=== PATIENT | male | born 1970 | race Caucasian/White ===

== ENCOUNTER 2017-09-02 19:43 | Inpatient (IN) | payer OTHER ==
[2017-09-02 20:19] LABS: #Eosinphils 0.1 thou/uL (0.0-0.7); #Lymphocytes 3.4 thou/uL (1.20-3.40); #Monocytes 0.6 thou/uL (0.11-0.59); #Neutrophils 2.8 thou/uL (1.40-6.50); %Basophils 0.7 % (0.0-1.0); %Eosinophils 1.9 % (0.0-10.0); %Neutrophils 40.4 % (42.0-75.0); Mean Corpuscular HGB CONC 35.5 g/dL (32.0-36.0); Mean Corpuscular Hemoglobin 32.8 pg (27.0-31.0); Mean Corpuscular Volume 92.4 fl (80.0-94.0); Mean Platelet Volume 7.2 fL (7.4-10.4); Platelet Count 211 thou/uL (130-400); Red Blood Cell (RBC) Count 4.27 mill/uL (4.70-6.10); White Blood Cell (WBC) Count 6.9 thou/uL (4.8-10.8)
[2017-09-02 20:42] LABS: ALT (SGPT) 15 U/L (8-55); AST (SGOT) 18 U/L (5-34); Albumin 4.3 g/dL (3.5-5.0); Alkaline Phosphatase 58 U/L (40-150); Anion Gap 12 mmol/L (10-20); BUN (Urea Nitrogen) 10 mg/dL (8.9-20.6); Bilirubin, Total 0.2 mg/dL (0.2-1.2); CK (CPK) 199 U/L (30-200); Calc. Creatinine Clearance 0 mL/min (70-130); Calcium 9.9 mg/dL (7.8-10.44); Carbon Dioxide 26 mmol/L (22-29); Chloride 106 mmol/L (98-107); Estimated GFR-MDRD Greater than 90; Globulin 2.6 g/dL (2.4-3.5); Glucose 86 mg/dL (70-105); Potassium 4.8 mmol/L (3.5-5.1); Protein, Total 6.9 g/dL (6.0-8.3); Sodium 139 mmol/L (136-145)
[2017-09-02 20:46] LABS: CKMB 1.7 ng/mL (0-6.6); Troponin I 0.012 ng/mL (< 0.028)
--- NOTE | 2017-09-02 20:56 | RAD ---
CHEST ONE VIEW: History: Chest pain. Comparison: 04-13-17 FINDINGS: Heart size and mediastinum are within normal limits. The lungs are clear of infiltrates. No significa nt bony findings. IMPRESSION: No active intrathoracic disease. POS: [facility]
[2017-09-02] MEDS ORDERED: Nitroglycerin 2% Ointment 1 INCH/1 GM Packet ONE (21:30)
[2017-09-02 23:42] LABS: Troponin I Less than 0.010 ng/mL (< 0.028)
[2017-09-03] MEDS ORDERED: Guaifenesin DM 100-10/5 ML UDCUP PO PRN
[2017-09-03] MEDS ORDERED: Ondansetron HCl/PF 4 MG/2 ML Vial IVP PRN
[2017-09-03] MEDS ORDERED: Acetaminophen 325 MG TAB PO PRN
[2017-09-03] MEDS ORDERED: Albuterol Sulfate 2.5 mg/3 ml Neb NEB PRN
[2017-09-03 00:12] VITALS: BMI 28.5
[2017-09-03] MEDS ORDERED: Nitroglycerin 0.4 MG TAB (25 Tab Bottle) SL PRN (00:13)
[2017-09-03] MEDS ORDERED: Dicyclomine 20 MG TAB PO PRN (00:13)
[2017-09-03] MEDS ORDERED: Meclizine HCl 12.5 MG TAB PO PRN (00:13)
[2017-09-03] MEDS ORDERED: FLU VACC QS2017-18 36 mo. & older 0.5 ML SYRINGE IM ONE (00:30)
[2017-09-03] MEDS ORDERED: Nicotine 21 MG PATCH TD SCH (01:00)
[2017-09-03 05:00] LABS: Anion Gap 10 mmol/L (10-20); BUN (Urea Nitrogen) 13 mg/dL (8.9-20.6); Calc. Creatinine Clearance 134 mL/min (70-130); Calcium 9.6 mg/dL (7.8-10.44); Carbon Dioxide 25 mmol/L (22-29); Chloride 109 mmol/L (98-107); Cholesterol 181 mg/dl (< 200 Desired); Estimated GFR-MDRD Greater than 90; Glucose 136 mg/dL (70-105); HDL Cholesterol 26 mg/dL (>60 Neg Risk); LDL Cholesterol, Calculated 114 mg/dL; Potassium 3.9 mmol/L (3.5-5.1); Sodium 140 mmol/L (136-145); Triglycerides 203 mg/dL (Less than 150)
[2017-09-03 05:05] LABS: Troponin I 0.013 ng/mL (< 0.028)
[2017-09-03 05:27] LABS: Band 2 % (5-11); Eosinophils 2 % (0-10); Hemoglobin 13.9 g/dL (14.0-18.0); Lymphocytes 53 % (21-51); MDiff Complete? YES; Mean Corpuscular HGB CONC 34.1 g/dL (32.0-36.0); Mean Corpuscular Hemoglobin 31.6 pg (27.0-31.0); Mean Corpuscular Volume 92.7 fl (80.0-94.0); Mean Platelet Volume 7.5 fL (7.4-10.4); Monocytes 6 % (0-10); Neutrophil 37 % (42-75); PLT Morphology Comment Appears Adequate; Platelet Count 213 thou/uL (130-400); RBC Distribution Width 12.2 % (11.5-14.5); Red Blood Cell (RBC) Count 4.39 mill/uL (4.70-6.10); White Blood Cell (WBC) Count 5.4 thou/uL (4.8-10.8)
--- NOTE | 2017-09-03 05:55 | HP ---
CHIEF COMPLAINT: Shortness of breath and chest pain. HISTORY OF PRESENT ILLNESS: This is a 47-year-old young white male with a known history of coronary artery disease status post stents, the last stent was done one year ago, was done at outside [place], unknown provider. Patient also has a history of peripheral arterial disease with a left leg stenting was done 4 months ago and patient is on Plavix and aspirin. Patient is a pretty chronic sm oker, smokes almost 3 packs a day and has been doing that for almost 30-40 years. He has been having this cough with productive sputum for the past 2-3 weeks and he always has this cough all the time. He is complaining of pain in the left side of the chest, more pleuritic in nature. Pain was 4/10 in intensity, not relieved with rest, not relieved, not aggravated on motion, but is aggravated on deep breathing and coughing. He denies having any fever, no body pains. Patient denies taking flu shots . PAST MEDICAL HISTORY: 1. Coronary artery disease. 2. Tobacco use. 3. History of seizure disorder. 4. History of chronic back pain. 5. Hepatitis C treated with interferon. 6. Bipolar disorder. 7. History of cholecystectomy. PAST SURGICAL HISTORY: Cholecystectomy. SOCIAL HISTORY: The patient is a nonsmoker. Smokes 3 packs a day for more than 30 years. No histor y of alcohol. He is and has grown children. He is self-employed and works as a [employer] a [employer]. FAMILY HISTORY: Mother of stroke. Father had lung cancer at the age of 70. ALLERGIES: MORPHINE, PENICILLIN, and VICODIN. HOME MEDICATIONS: 1. Gemfibrozil 600 mg twice a daily. 2. Zyrtec 10 mg daily. 3. Plavix 75 mg daily. 4. Seroquel 100 mg 1.5 tablets in the evening. 5. Depakote 500 mg 4 times a day. 6. Aspirin 325 mg daily. 7. Toprol 25 mg daily. 8. Diazepam 10 mg p.o. at bedtime. 9. Plavix 75 mg p.o. daily. 10. Depakote 2000 mg p.o. at bedtime. 11. Isosorbide mononitrate 30 mg p.o. daily. 12. Meclizine. 13. Nitroglycerin as needed. 14. Pravastatin 80 mg at bedtime. 15. Quetiapine 150 mg at bedtime. REVIEW OF SYSTEMS: All 12 systems are reviewed with the patient thoroughly and found to be negative at this time except the once described in the HPI. The following complete review of systems was nega tive, unless otherwise mentioned in the HPI or below: Constitutional: Weight loss or gain, sense of well-being, ability to conduct usual activities, exercise tolerance. Skin/Breast: Rash, itching, c hanges in hair growth or loss, nail changes, breast lumps, tenderness, swelling, nipple discharge. E yes: Vision, double vision, tearing, blind spots, pain. ENT/Mouth: Headaches (location, time of on set, duration, precipitating factors), vertigo, lightheadedness, injury. Vision, double vision, teari ng, blind spots, pain, nose bleeding, colds, obstruction, discharge, dental difficulties, gingival bl eeding, dentures, neck stiffness, pain, tenderness, masses in thyroid or other areas. Cardiovascular : Precordial pain, substernal distress, palpitations, syncope, dyspnea on exertion, orthopnea, noctu rnal paroxysmal dyspnea, edema, cyanosis, hypertension, heart murmurs, varicosities, phlebitis, lindy ication. Respiratory: Pain, shortness of breath, wheezing, stridor, cough, hemoptysis, fever or nig ht sweats. Gastrointestinal: Poor appetite, dysphagia, indigestion, abdominal pain, heartburn, eruc tation, nausea, vomiting, hematemesis, jaundice, constipation, or diarrhea, abnormal stools (guillermo-col ored, tarry, bloody, greasy, foul smelling), flatulence, hemorrhoids, recent changes in bowel habits. Genitourinary: Urgency, frequency, dysuria, nocturia, hematuria, polyuria, oliguria, unusual (or c hange in) color of urine, stones, hesitancy, change in size of stream, dribbling, acute retention or incontinence, libido, potency. Musculoskeletal: Pain, swelling, redness or heat of muscles or joint s, limitation, of motion, muscular weakness, atrophy, cramps. Neurologic/Psychiatric: Convulsions, paralyses, tremor, incoordination, parasthesias, difficulties with memory of speech, sensory or motor disturbances, or muscular coordination (ataxia, tremor), emotional problems, anxiety, depression, pr evious psychiatric care, unusual perceptions, hallucinations. Allergy/Immunologic: Skin rash, anemia, bleeding tendency, polydipsia, polyuria, intolerance to heat or cold. PHYSICAL EXAMINATION: VITAL SIGNS: Blood pressures of 130/80, heart rate is 88, heart rate is 58, respiratory rate is 18, saturation is 98%. GENERAL: The patient is moderately-built, moderately nourished, does not appear to be in acute distr ess at this time, alert, oriented x3. HEENT: Atraumatic, normocephalic. PERRLA. Extraocular muscles were intact. Oral mucosa is pink an d moist. CARDIOVASCULAR: S1, S2 normal. No murmurs, rubs or gallops. LUNGS: Bilateral air entry was equal. Had crackles and wheezing noted diffusely but no signs of any acute respiratory distress. ABDOMEN: Soft, nontender, no guarding, no rebound tenderness. Bowel sounds are normal. MUSCULOSKELETAL: No calf tenderness. No pedal edema. No joint tenderness, no joint swelling. SKIN: No cyanosis, no erythema, no rash, no pallor. NEUROLOGIC: Cranial nerve examination II-XII intact. No focal deficits were noted. PSYCHIATRIC: No signs of suicidal ideation. No signs of nicole. LYMPHADENOPATHY: No evidence of generalized lymphadenopathy was noted. LABORATORY DATA: Sodium 139, potassium 4.8, chloride 106, BUN is 10, creatinine 0.88. WBC 6.9, hemo globin 14.2, hematocrit 39.5, platelets are 211. ASSESSMENT AND PLAN: 1. Acute coronary syndrome. 2. Possible new-onset chronic obstructive pulmonary disease. 3. Coronary artery disease status post stents. 4. Hypertension. 5. Hyperlipidemia. 6. Peripheral arterial disease. PLAN: 1. Plan is to closely monitor this patient with serial troponins q.6 hours and will plan to do a nuc lear stress test in the morning. We will consult Cardiology as the patient is a high risk with a rec ent stent a year ago and patient is on aspirin and Plavix and patient was told he is very high risk; with any chest pains, need to be called in with the traffic circuit engineer. Patient also had a peripheral ana rial stent 3 months ago. 2. We will continue the patient on home medications, aspirin and Plavix. We will hold beta hola at this time as the patient had a bradycardia in the ER with a heart rate in 59. 3. Patient has a possible new onset COPD because of his chronic smoking history of more than 3 packs for more than 30 years. We will put a nicotine patch. I counseled the patient to quit smoking. I spent 15-20 minutes with the patient and at this time, we will start the patient on DuoNeb every 4 ho urs and albuterol nebs as needed. Most likely, he could be having a COPD exacerbation. He also comp lains of productive sputum. We will start the patient on azithromycin. 4. Patient has history of hypertension. We will continue the patient with home medications. 5. Patient has a history of coronary artery disease status post stents as discussed above. 6. We will follow with the cardiology recommendations. 7. Patient has history of seizure disorder. We will restart the patient's home medications. The pa radha is on Depakote. 8. DVT prophylaxis. Lovenox 40 mg subcu daily. Dictating physician, Marlon Carrillo, spent 70 minutes with this patient.
[2017-09-03] MEDS ORDERED: Ondansetron ODT 4 MG TAB PO PRN (06:00)
[2017-09-03] MEDS: Nitroglycerin 2% Ointment 1 INCH/1 GM Packet TOP SCH ×4 (06:08→23:44)
[2017-09-03] MEDS: Budesonide 0.25 MG/2 ML NEB INH SCH ×2 (07:27→19:38)
[2017-09-03] MEDS ORDERED: Enoxaparin Sodium 40 MG/0.4 ML SYRINGE SC SCH (09:00)
[2017-09-03] MEDS ORDERED: Non-Formulary Item 1 EACH (Esomeprazole Magnesium [Nexium] 40 MG) PO SCH (09:00)
[2017-09-03] MEDS ORDERED: Aspirin 325 MG TAB PO SCH (09:00)
[2017-09-03] MEDS ORDERED: Cetirizine HCl 10 MG TAB PO SCH (09:00)
[2017-09-03] MEDS ORDERED: Communication Order-Pharmacy FS SCH (12:45)
[2017-09-03] MEDS: Aspirin 325 mg Enteric Coated Tablet PO SCH (13:52)
[2017-09-03] MEDS: Azithromycin 250 MG TAB PO SCH (13:52)
[2017-09-03] MEDS ORDERED: Regadenoson 0.4 MG/5 ML SYRINGE ONE (13:56)
[2017-09-03] MEDS: Docusate 100 MG CAP PO SCH ×2 (13:56→21:36)
[2017-09-03] MEDS: Famotidine/PF 20 mg/2ml Vial SLOW IVP SCH ×2 (13:56→21:36)
[2017-09-03] MEDS: Loratadine 10 MG TAB PO SCH (13:56)
[2017-09-03] MEDS: Clopidogrel Bisulfate 75 MG TAB PO SCH (14:29)
--- NOTE | 2017-09-03 14:31 | CON ---
DATE OF CONSULTATION: 09/03/2017 HISTORY OF PRESENT ILLNESS: The patient is a 47-year-old gentleman who presents for evaluation of recurrent chest discomfort. The patient has a history of PTCA and stent placement into the LAD and left circumflex artery. Unfortunately, the patient has a history of noncompliance. He states that since he last had stents placed approximately 6 months ago he has missed several days of his Plavix and aspirin. The patient states yesterday he developed substernal chest pain and required 2 nitroglycerins for relief. The patient denies having any present chest discomfort. PAST MEDICAL HISTORY: 1. Coronary artery disease. 2. Hypertension. 3. Seizure disorder. 4. Bipolar disorder. 5. Past history of hepatitis C. 6. Peripheral vascular disease. PAST SURGICAL HISTORY: Cholecystectomy. ALLERGIES: MORPHINE, PENICILLIN, VICODIN. SOCIAL HISTORY: He smokes 3 packs per day. The patient has a past history of alcohol abuse and illicit drug use. MEDICATIONS ON ADMISSION: Cardizem 120 daily, aspirin 325 daily, Depakote 2000 at bedtime, Plavix 75 daily, Zyrtec 10 daily, Imdur 30 q.a.m., Nexium 40 daily, Seroquel 150 at bedtime. REVIEW OF SYSTEMS: Ten point system noticeable for increasing dyspnea. PHYSICAL EXAMINATION: GENERAL: This is an anxious gentleman with a blood pressure of 118/58. NECK: Showed no jugular venous distention. LUNGS: Coarse breath sounds bilateral. HEART: Regular rate and rhythm, normal S1, S2, no murmurs. ABDOMEN: Nondistended. EXTREMITIES: No edema. SKIN: Warm and dry. NEUROLOGIC: Nonfocal. PSYCHIATRIC: The patient is anxious. LABORATORY DATA: White blood count 5.4, hemoglobin 13.9, hematocrit 40.7, platelets 213. Sodium is 140, potassium 3.9, chloride 109, bicarbonate 25, BUN 13, creatinine 0.8. His cholesterol was 203. His EKG revealed him to have sinus bradycardia, otherwise normal ECG. IMPRESSION: 1. Unstable angina. 2. History of percutaneous transluminal coronary angioplasty and stent placement. 3. Peripheral vascular disease. 4. Hypertension. 5. Dyslipidemia. 6. Tobacco abuse. This gentleman presents with unstable angina. He has evidence of a large anterior defect on his stress test. I have highly recommend he proceed with a repeat cardiac catheterization to determine if he has developed evidence of restenosis or progressive coronary artery disease. I explained the risks involved cardiac catheterization including [place], bleeding, stroke, cardiac arrhythmia, and cardiac . The patient understands these risks and wishes to proceed. The life threatening consequences of his noncompliance with medications have once again been explained to the patient. The patient has been restarted on his Plavix and aspirin. We will start the patient on statin therapy. We will follow this patient with you through his hospitalization. YOLANDA
--- NOTE | 2017-09-03 15:53 | NM ---
CARDIAC SPECT: HISTORY: A 47-year-old male with chest pain, coronary artery disease, peripheral artery disease, hypertension, and dyslipidemia. TECHNIQUE: A myocardial perfusion scan was performed using the single-isotope 1-day protocol with Technetium 99m sestamibi. Eleven mCi were injected intravenously for the rest exam followed by 31 mCi for the stre ss study. Pharmacologic stress with LexiScan was monitored and interpreted by Dr. Hair. FINDINGS: There is a moderate-sized perfusion defect in the anterior wall on stress images with near-complete r eversibility at rest. GATED SPECT LVEF: 63%. WALL MOTION EXAM: Normal. IMPRESSION: Reversible anterior wall ischemia. POS: [facility]
--- NOTE | 2017-09-03 16:49 | PDOC.PN ---
- Subjective Encounter Start Date: 09/03/17 Encounter Start Time: 16:53 Subjective: Reports no complaints -: No acute events overnight. -: Stress test done for chest pain abnormal. - Objective Resuscitation Status: Resuscitation Status FULL:Full Resuscitation Vital Signs & Weight: Vital Signs (12 hours) Temp Pulse Resp BP Pulse Ox 09/03/17 15:26 97.5 F L 56 L 20 120/59 L 95 09/03/17 13:43 50 L 09/03/17 08:00 97.7 F 50 L 16 09/03/17 07:30 94 L 09/03/17 07:27 50 L 16 94 L 09/03/17 07:10 97.7 F 48 L 16 118/58 L 92 L Weight Weight 182 lb 8 oz I&O: 09/02/17 09/03/17 09/04/17 06:59 06:59 06:59 Intake Total 240 Output Total 0 Balance 240 Result Diagrams: 09/03/17 04:29 09/03/17 04:29 Phys Exam - Physical Examination Constitutional: NAD HEENT: PERRLA, moist MMs, sclera anicteric Neck: no JVD, supple, full ROM Respiratory: no wheezing, no rales, no rhonchi, clear to auscultation bilateral Cardiovascular: RRR, no significant murmur, no rub Gastrointestinal: soft, non-tender, no distention, positive bowel sounds Musculoskeletal: no edema, pulses present Neurological: non-focal, moves all 4 limbs Psychiatric: normal affect, A&O x 3 Skin: no rash, normal turgor Dx/Plan (1) Chest pain Code(s): R07.9 - CHEST PAIN, UNSPECIFIED Status: Acute Qualifiers: Chest pain type: chest pain due to myocardial ischemia Ischemic chest pain type: unstable angina pectoris Qualified Code(s): I20.0 - Unstable angina Comment: Stress test showed anterior infarct. Cards on board. Cath tomorrow. Nitroglycerin PRN ASA (2) CAD (coronary artery disease) Code(s): I25.10 - ATHSCL HEART DISEASE OF [place] CORONARY ARTERY W/O ANG PCTRS Status: Acute Qualifiers: Coronary Disease-Associated Artery/Lesion type: unspecified vessel or lesion type [place] vs. transplanted heart: [place] heart Associated angina: with unstable angina Qualified Code(s): I25.110 - Atherosclerotic heart disease of [place] coronary artery with unstable angina pectoris Plan: As above. (3) Tobacco abuse disorder Code(s): Z72.0 - TOBACCO USE Status: Acute Comment: Encourage on cessation (4) Seizure disorder Code(s): G40.909 - EPILEPSY, UNSP, NOT INTRACTABLE, WITHOUT STATUS EPILEPTICUS Status: Acute Comment: Stable, seizure free. Resume home medications (5) Hepatitis C infection Code(s): B19.20 - UNSPECIFIED VIRAL HEPATITIS C WITHOUT HEPATIC COMA Status: Acute Qualifiers: Viral hepatitis chronicity: chronic Hepatic coma status: without hepatic coma Qualified Code(s): B18.2 - Chronic viral hepatitis C Comment: On interferon. (6) Bipolar disorder Code(s): F31.9 - BIPOLAR DISORDER, UNSPECIFIED Status: Acute Qualifiers: Active/Remission status: remission status unspecified Qualified Code(s): F31.9 - Bipolar disorder, unspecified Comment: Stable Continue home medications. - Plan cont current plan of care, DVT proph w/lovenox * .
[2017-09-03] MEDS ORDERED: Pravastatin Sodium 40 MG TAB PO SCH (21:00)
[2017-09-04] MEDS: Azithromycin 250 MG TAB PO SCH (04:59)
[2017-09-04] MEDS: Loratadine 10 MG TAB PO SCH (05:00)
[2017-09-04] MEDS: Clopidogrel Bisulfate 75 MG TAB PO SCH (05:00)
[2017-09-04] MEDS: Nitroglycerin 2% Ointment 1 INCH/1 GM Packet TOP SCH ×2 (05:00→13:29)
[2017-09-04] MEDS: Aspirin 325 mg Enteric Coated Tablet PO SCH (05:00)
[2017-09-04 06:18] LABS: Anion Gap 10 mmol/L (10-20); BUN (Urea Nitrogen) 14 mg/dL (8.9-20.6); Calc. Creatinine Clearance 129 mL/min (70-130); Calcium 9.2 mg/dL (7.8-10.44); Carbon Dioxide 26 mmol/L (22-29); Chloride 108 mmol/L (98-107); Estimated GFR-MDRD Greater than 90; Glucose 101 mg/dL (70-105); Magnesium 2.2 mg/dL (1.6-2.6); Potassium 3.9 mmol/L (3.5-5.1); Sodium 140 mmol/L (136-145)
[2017-09-04 06:44] LABS: Eosinophils 1 % (0-10); Lymphocytes 51 % (21-51); MDiff Complete? YES; Mean Corpuscular HGB CONC 33.6 g/dL (32.0-36.0); Mean Corpuscular Hemoglobin 31.4 pg (27.0-31.0); Mean Corpuscular Volume 93.3 fl (80.0-94.0); Mean Platelet Volume 7.6 fL (7.4-10.4); Monocytes 7 % (0-10); Neutrophil 39 % (42-75); PLT Morphology Comment Appears Adequate; Platelet Count 190 thou/uL (130-400); RBC Distribution Width 12.2 % (11.5-14.5); RBC Morphology Normal; Reactive Lymphocytes 2 % (0-10); Red Blood Cell (RBC) Count 4.16 mill/uL (4.70-6.10); White Blood Cell (WBC) Count 5.9 thou/uL (4.8-10.8)
[2017-09-04] MEDS ORDERED: Verapamil 5 MG/2 ML VIAL ONE (07:09)
[2017-09-04] MEDS ORDERED: Heparin 10,000 UNITS/1 ML VIAL ONE (07:09)
[2017-09-04] MEDS ORDERED: Nitroglycerin 100MG/250ML BOT 250 ML ONE (07:09)
[2017-09-04] MEDS ORDERED: Midazolam HCl 2 mg/2 ml Vial ONE (07:22)
[2017-09-04] MEDS: Budesonide 0.25 MG/2 ML NEB INH SCH (07:22)
[2017-09-04] MEDS ORDERED: Fentanyl 100 MCG/2 ML VIAL ONE (07:23)
[2017-09-04] MEDS ORDERED: Nitroglycerin 0.4 MG TAB 1 EACH SL PRN (08:14)
[2017-09-04] MEDS ORDERED: Clopidogrel Bisulfate 300 MG TAB ONE (08:15)
[2017-09-04] MEDS ORDERED: Nicotine 21 MG PATCH TD SCH (09:00)
[2017-09-04] MEDS: Docusate 100 MG CAP PO SCH (09:41)
--- NOTE | 2017-09-04 12:52 | PDOC.PN ---
- Subjective Encounter Start Date: 09/04/17 Encounter Start Time: 12:57 Subjective: No acute events overnight. -: Has no complaints today -: [facility] earlier this morning. Tolerated procedure without incident . - Objective Resuscitation Status: Resuscitation Status FULL:Full Resuscitation MAR Reviewed: Yes Vital Signs & Weight: Vital Signs (12 hours) Temp Pulse Resp BP Pulse Ox 09/04/17 11:52 97.9 F 60 16 135/65 92 L 09/04/17 09:41 64 09/04/17 08:00 98.1 F 64 18 134/68 09/04/17 04:45 98.1 F 61 14 116/63 93 L Weight Weight 182 lb 8 oz I&O: 09/03/17 09/04/17 09/05/17 06:59 06:59 06:59 Intake Total 240 1000 Output Total 0 Balance 240 1000 Result Diagrams: 09/04/17 04:46 09/04/17 04:46 Phys Exam - Physical Examination Constitutional: NAD HEENT: PERRLA, moist MMs, sclera anicteric Neck: supple, full ROM Respiratory: no wheezing, no rales, no rhonchi, clear to auscultation bilateral Cardiovascular: RRR, no significant murmur, no rub Gastrointestinal: soft, non-tender, no distention, positive bowel sounds Musculoskeletal: no edema, pulses present Neurological: non-focal, moves all 4 limbs Skin: no rash, normal turgor Dx/Plan (1) Chest pain Code(s): R07.9 - CHEST PAIN, UNSPECIFIED Status: Acute Qualifiers: Chest pain type: chest pain due to myocardial ischemia Ischemic chest pain type: unstable angina pectoris Qualified Code(s): I20.0 - Unstable angina Comment: Stress test showed anterior infarct. Cards on board. Cath tomorrow. Nitroglycerin PRN ASA, Plavix, Statin, diltiazem and Isosorbide mononitrate s/p POBA to D1 (2) CAD (coronary artery disease) Code(s): I25.10 - ATHSCL HEART DISEASE OF [place] CORONARY ARTERY W/O ANG PCTRS Status: Acute Qualifiers: Coronary Disease-Associated Artery/Lesion type: unspecified vessel or lesion type [place] vs. transplanted heart: [place] heart Associated angina: with unstable angina Qualified Code(s): I25.110 - Atherosclerotic heart disease of [place] coronary artery with unstable angina pectoris Plan: As above. (3) Tobacco abuse disorder Code(s): Z72.0 - TOBACCO USE Status: Acute Comment: Encouraged on cessation (4) Seizure disorder Code(s): G40.909 - EPILEPSY, UNSP, NOT INTRACTABLE, WITHOUT STATUS EPILEPTICUS Status: Acute Comment: Stable, seizure free. Resume home medications (5) Hepatitis C infection Code(s): B19.20 - UNSPECIFIED VIRAL HEPATITIS C WITHOUT HEPATIC COMA Status: Acute Qualifiers: Viral hepatitis chronicity: chronic Hepatic coma status: without hepatic coma Qualified Code(s): B18.2 - Chronic viral hepatitis C Comment: On interferon. (6) Bipolar disorder Code(s): F31.9 - BIPOLAR DISORDER, UNSPECIFIED Status: Acute Qualifiers: Active/Remission status: remission status unspecified Qualified Code(s): F31.9 - Bipolar disorder, unspecified Comment: Stable Continue home medications. - Plan Likely d/c today ig v\given all clear by cardiology. * .
[2017-09-04 16:26] VITALS: BP 132/65; TEMP 98.6
--- NOTE | 2017-09-05 21:37 | DIS ---
DATE OF ADMISSION: 09/02/2017 DATE OF DISCHARGE: 09/04/2017 DISCHARGE DIAGNOSIS: Coronary artery disease. SECONDARY DIAGNOSES: Tobacco abuse, seizure disorder, chronic back pain, hepatitis C treated with [facility], bipolar disorder, cholecystectomy. HISTORY OF PRESENT ILLNESS AND HOSPITAL COURSE: A 47-year-old male with a history of CAD status post stents with the last stent done about a year ago and who also has a history of PAD with left leg korin nting done 4 months ago, on Plavix and aspirin. The patient is a chronic smoker, always smokes 3 pac ks a day and has been smoking for about 40 years. He has also had a history of polysubstance abuse. He presented to the emergency room which cough productive of sputum (has smoker's cough) and left-si ded chest pain described as pleuritic 4/10, not relieved by rest, not aggravated by motion. He denie d fever, aches. He had no other symptoms. He has not had a flu shot. HOSPITAL COURSE: He had a stress test which showed reversible anterior wall ischemia. He proceeded to have cardiac catheterization the following day in which a successful POBA to D1 was placed success fully. The patient, however, left against medical advice the same day. Patient is deemed to have re sumed his home medications as he left AMA. PHYSICAL EXAMINATION: The patient left AMA, so was not examined. LABORATORY DATA: CBC was largely unremarkable as well as serum chemistry. IMAGING: Chest x-ray with no acute pathology. CONSULT: Cardiology. CONDITION AT DISCHARGE: Guarded (Patient left AMA). PROCEDURES: Cardiac catheterization. DIET: Heart healthy diet. CARE GOALS: To follow up with his primary care physician within 1 week of discharge. ACTIVITY: To resume as tolerated. Time of discharge, including chart review documentation of 65 minutes.
--- NOTE | 2017-09-07 17:25 | EKG ---
Test Reason : Blood Pressure : / mmHG Vent. Rate : 059 BPM Atrial Rate : 059 BPM P-R Int : 150 ms QRS Dur : 090 ms QT Int : 418 ms P-R-T Axes : 055 066 060 degrees QTc Int : 413 ms Sinus bradycardia Otherwise normal ECG Confirmed by JEFRY BALTAZAR, KATHIA Roberts ([id number]), commercial production editor OLGA QUISPE ([id number]) on 09/07/2017 5:25:25 PM Referred By: Confirmed By:KATHIA CAPPS MD
== END 2017-09-04 17:07 | disposition left against medical advice (07) | DRG 251 ==
LOC: ERS 19:43 → OBSVTOIN 21:10 → 2SW 21:10
PROVIDERS: ADMIT Family Medicine; ATTEND Family Medicine
PROC: 02703ZZ Dilation of Coronary Artery, One Artery, Percutaneous Approach (ICD-10-PCS; principal; 2017-09-04)
PROC: 4A023N7 Measurement of Cardiac Sampling and Pressure, Left Heart, Percutaneous Approach (ICD-10-PCS; 2017-09-04)
PROC: B2111ZZ Fluoroscopy of Multiple Coronary Arteries using Low Osmolar Contrast (ICD-10-PCS; 2017-09-04)
PROC: B3101ZZ Fluoroscopy of Thoracic Aorta using Low Osmolar Contrast (ICD-10-PCS; 2017-09-04)
PROC: B2151ZZ Fluoroscopy of Left Heart using Low Osmolar Contrast (ICD-10-PCS; 2017-09-04)
DX: I25.110 Atherosclerotic heart disease of native coronary artery with unstable angina pectoris (principal); B19.20 Unspecified viral hepatitis C without hepatic coma; F17.210 Nicotine dependence, cigarettes, uncomplicated; G40.909 Epilepsy, unspecified, not intractable, without status epilepticus; F31.9 Bipolar disorder, unspecified; I73.9 Peripheral vascular disease, unspecified; Z95.5 Presence of coronary angioplasty implant and graft; Z91.14 Patient's other noncompliance with medication regimen; E78.5 Hyperlipidemia, unspecified; J44.9 Chronic obstructive pulmonary disease, unspecified; I10 Essential (primary) hypertension
CPT/HCPCS: 36415; 71045; 78452; 80048; 80053; 80061; 82553; 83735; 84484; 85025; 85347; 90471; 90682; 90732; 92920; 93005; 93010; 93017; 93306; 93458; 93798; 94640; 94760; 99152; 99153; 99406; A4216; A9500; C1769; G0008; G0009; J1644; J1650; J2250; J2785; J3010; J7620; J7626; Q2036; S0028

== ENCOUNTER 2019-02-15 19:17 | Observation (INO) | payer OTHER ==
[2019-02-15 19:41] LABS: #Eosinphils 0.1 thou/uL (0.0-0.7); #Lymphocytes 4.3 thou/uL (1.20-3.40); #Monocytes 0.5 thou/uL (0.11-0.59); %Basophils 0.4 % (0.0-1.0); %Eosinophils 1.3 % (0.0-10.0); %Lymphocytes 38.8 % (21.0-51.0); %Monocytes 4.9 % (0.0-10.0); %Neutrophils 54.5 % (42.0-75.0); Hemoglobin 13.7 g/dL (14.0-18.0); Mean Corpuscular HGB CONC 33.6 g/dL (32.0-36.0); Mean Corpuscular Hemoglobin 31.1 pg (27.0-31.0); Mean Corpuscular Volume 92.5 fL (78.0-98.0); Mean Platelet Volume 6.6 fL (7.4-10.4); Platelet Count 270 thou/uL (130-400); RBC Distribution Width 12.6 % (11.5-14.5); White Blood Cell (WBC) Count 11.1 thou/uL (4.8-10.8)
[2019-02-15 20:03] LABS: ALT (SGPT) 11 U/L (8-55); AST (SGOT) 9 U/L (5-34); Albumin 4.3 g/dL (3.5-5.0); Alkaline Phosphatase 66 U/L (40-150); Anion Gap 13 mmol/L (10-20); BUN (Urea Nitrogen) 7 mg/dL (8.9-20.6); Bilirubin, Total 0.2 mg/dL (0.2-1.2); CK (CPK) 55 U/L (30-200); Calc. Creatinine Clearance 0 mL/min (70-130); Calcium 10.2 mg/dL (7.8-10.44); Carbon Dioxide 25 mmol/L (22-29); Chloride 106 mmol/L (98-107); Estimated GFR-MDRD Greater than 90; Globulin 2.6 g/dL (2.4-3.5); Glucose 115 mg/dL (70-105); Lipase 68 U/L (8-78); Potassium 3.7 mmol/L (3.5-5.1); Protein, Total 6.9 g/dL (6.0-8.3); Sodium 140 mmol/L (136-145)
--- NOTE | 2019-02-15 20:03 | RAD ---
Exam: Chest one view HISTORY:Chest pain Comparison: 09/02/2017 FINDINGS: Lungs: No masses or consolidation. Right hemidiaphragm is elevated. Cardiac silhouette: Normal size Pulmonary vessels: Normal Pleural Spaces: Clear Pneumothorax: None Osseous abnormalities: None of acuity. IMPRESSION: No focal consolidation.
[2019-02-15] MEDS ORDERED: Nitroglycerin 0.4 MG TAB 1 EACH ONE (20:05)
[2019-02-15] MEDS ORDERED: Aspirin Chewable 81 MG TAB ONE (20:05)
[2019-02-15 20:15] LABS: Acetaminophen Less than 6.0 mcg/mL (10.0-30.0); Alcohol Less than 10 mg/dL (Less than 10); Salicylate Less than 8.0 mg/dL (15.0-30.0)
[2019-02-15 20:32] LABS: Amphetamine Not Detected (NotDetected); Barbiturates Screen Not Detected (NotDetected); Benzodiazepine Screen Detected (NotDetected); Cocaine Metabolite Screen Not Detected (NotDetected); Medtox Control Line Valid? VALID (VALID); Medtox Reader # READER 1; Methadone Not Detected (NotDetected); Methamphetamine Not Detected (NotDetected); Opiate Screen Not Detected (NotDetected); Oxycodone Screen Not Detected (NotDetected); Phencyclidine (PCP) Not Detected (NotDetected); THC/Cannabinoid Screen Not Detected (NotDetected); Tricyclic Screen Detected (NotDetected)
[2019-02-15 22:51] LABS: Troponin I Less than 0.010 ng/mL (< 0.028)
[2019-02-15 23:07] VITALS: BMI 25.4
[2019-02-15] MEDS ORDERED: Dicyclomine 20 MG TAB PO PRN (23:37)
[2019-02-15] MEDS ORDERED: Meclizine HCl 12.5 MG TAB PO PRN (23:37)
[2019-02-15] MEDS ORDERED: Nitroglycerin 0.4 MG TAB (25 Tab Bottle) SL PRN (23:37)
[2019-02-15] MEDS ORDERED: Ondansetron PF 4 MG/2 ML Vial IVP PRN (23:55)
[2019-02-15] MEDS ORDERED: Ondansetron ODT 4 MG TAB PO PRN (23:55)
--- NOTE | 2019-02-16 01:17 | HP ---
PRIMARY CARE PHYSICIAN: None. CHIEF COMPLAINT: Chest pain. HISTORY OF PRESENT ILLNESS: Mr. Lennon is a 48-year-old man with a past medical history of hypertension, hyperlipidemia, coronary artery disease, status post stents x3, seizure disorder, bipolar disorder, who had presented to [facility] earlier today for a new onset left-sided chest pain. The patient states that he has a history of angina that he takes nitroglycerin and isosorbide for at home; however, he states that this chest pain has been gradually getting worse over the last week, and he states that it is worse with activity. He was recently incarcerated for the last 4 months and was not getting some of his home medications for this. He had denied any fever, chills, any headache, blurred vision, dizziness, any palpitations, shortness of breath, abdominal pain, nausea, vomiting, or any change in his stool. In the Emergency Department, he was given aspirin and nitroglycerin, which had helped with his chest pain. His blood pressure and other vital signs remained stable and he had remained in normal sinus rhythm on the EKG. Serial troponins were performed and found to be negative so far x2. A urine drug screen was also performed and detected benzodiazepines and tricyclics, otherwise unremarkable. REVIEW OF SYSTEMS: All other systems reviewed and found to be negative unless mentioned in HPI. PAST MEDICAL HISTORY: Hypertension, hyperlipidemia, coronary artery disease, seizure disorder, bipolar disorder, hepatitis C, chronic back pain and peripheral vascular disease with 2 stents in the left leg. PAST SURGICAL HISTORY: Cholecystectomy, 2 stents placed in the left leg, and cardiac catheterization, status post 3 stents. PAST PSYCHIATRIC HISTORY: Schizophrenia, and bipolar disorder. SOCIAL HISTORY: The patient denies any alcohol or illicit drug use; however, he does admit to smoking 3 to 5 packs of cigarettes per day. KNOWN ALLERGIES: Codeine, morphine, hydrocodone, and penicillins. CURRENT HOME MEDICATIONS: 1. Aspirin 325 mg oral daily. 2. Clopidogrel 75 mg oral daily. 3. Dicyclomine 20 mg p.o. q.i.d. p.r.n. abdominal pain. 4. Diltiazem 120 mg oral daily. 5. Depakote 2000 mg p.o. at bedtime. 6. Isosorbide 30 mg p.o. daily. 7. Meclizine 12.5 mg p.o. q.i.d. p.r.n. dizziness. 8. Nitroglycerin 0.4 mg sublingual every 5 minutes as needed for chest pain. 9. Nitroglycerin 30 g tube one application topical q.6 hours as needed for chest pain. 10. Pravastatin 80 mg p.o. at bedtime. 11. Seroquel 150 mg p.o. at bedtime. PHYSICAL EXAMINATION: VITAL SIGNS: BP 131/73, pulse 64, respirations 15, temperature 98.5 degrees Fahrenheit, O2 saturation 96% on room air. GENERAL: The patient is awake, alert, and oriented x3. He is currently lying comfortably in bed, and in no acute distress. HEENT: Atraumatic, normocephalic. Pupils are round and reactive to light. Extraocular muscles intact. Moist mucous membranes noted. Poor oral hygiene noted. NECK: Soft and supple. Trachea midline. CARDIOVASCULAR: Positive S1 and S2. Regular rate and rhythm. No murmur auscultated. RESPIRATORY: Clear to auscultation bilaterally. No wheezes, rales, or rhonchi. ABDOMEN: Soft, nontender. Bowel sounds present. MUSCULOSKELETAL: Strength 5+ bilateral upper and lower extremities. Pedal and radial pulses 2+ bilaterally. Moves all extremities equal. No edema noted. NEUROLOGIC: Cranial nerves 2 through 12 grossly intact. No focal deficits noted. Speech intact and normal. Gait not assessed. SKIN: Warm, dry, and intact. No rash. No ulceration noted. PSYCHIATRIC: Good mood and affect. LABORATORY DATA: WBC 11.1, RBC 4.40, hemoglobin 13.7, platelet 270. Sodium 140, potassium 3.7, anion gap 13, BUN 7, creatinine 0.83, estimated GFR greater than 90, glucose 115. Troponin less than 0.010 x2, lipase 68. Toxicology detected tricyclics and benzodiazepines, otherwise unremarkable. DIAGNOSTIC IMAGING: Portable chest x-ray showed no focal consolidation noted. ASSESSMENT AND PLAN: 1. Chest pain, the patient will undergo cardiac stress test in the a.m. So far cardiac enzymes are negative x2, and he will be resumed on his home regimen at this time including nitroglycerin and isosorbide for his chest pain. 2. Hypertension, currently stable at this time. Continue home regimen. 3. Hyperlipidemia. Continue home statin. Check lipid panel in the morning. 4. History of coronary artery disease. Continue home regimen. 5. History of seizure disorder. Continue home Depakote and check a Depakote level. 6. History of schizophrenia and bipolar disorder. Continue home regimen. 7. Tobacco abuse. Strongly encouraged smoking cessation. 8. Deep venous thrombosis and gastrointestinal prophylaxis. 9. Code status, full code. 10. Disposition pending further workup and clinical findings. 11. The patient will likely be discharged home in the next 1 to 2 days if his workup is negative. Job ID: [id number]
[2019-02-16] MEDS: Nitroglycerin 2% Ointment 1 INCH/1 GM Packet TOP SCH ×3 (01:26→11:54)
[2019-02-16 02:05] LABS: Troponin I Less than 0.010 ng/mL (< 0.028)
[2019-02-16 05:17] LABS: #Basophils 0.1 thou/uL (0.0-0.2); #Eosinphils 0.2 thou/uL (0.0-0.7); #Lymphocytes 3.5 thou/uL (1.20-3.40); #Monocytes 0.6 thou/uL (0.11-0.59); #Neutrophils 5.9 thou/uL (1.40-6.50); %Basophils 0.7 % (0.0-1.0); %Eosinophils 1.9 % (0.0-10.0); %Lymphocytes 33.7 % (21.0-51.0); %Monocytes 6.1 % (0.0-10.0); %Neutrophils 57.6 % (42.0-75.0); Hemoglobin 13.3 g/dL (14.0-18.0); Mean Corpuscular HGB CONC 34.1 g/dL (32.0-36.0); Mean Corpuscular Hemoglobin 31.6 pg (27.0-31.0); Mean Corpuscular Volume 92.7 fL (78.0-98.0); Mean Platelet Volume 7.5 fL (7.4-10.4); Platelet Count 237 thou/uL (130-400); RBC Distribution Width 12.7 % (11.5-14.5); Red Blood Cell (RBC) Count 4.21 mill/uL (4.70-6.10); White Blood Cell (WBC) Count 10.3 thou/uL (4.8-10.8)
[2019-02-16 05:24] LABS: Anion Gap 11 mmol/L (10-20); BUN (Urea Nitrogen) 9 mg/dL (8.9-20.6); Calc. Creatinine Clearance 107 mL/min (70-130); Calcium 9.9 mg/dL (7.8-10.44); Carbon Dioxide 27 mmol/L (22-29); Cardiac Risk 4.5 (Less than 4.5); Chloride 107 mmol/L (98-107); Cholesterol 165 mg/dl (< 200 Desired); Estimated GFR-MDRD Greater than 90; Glucose 107 mg/dL (70-105); HDL Cholesterol 37 mg/dL (>60 Neg Risk); LDL Cholesterol, Calculated 68 mg/dL; Potassium 3.9 mmol/L (3.5-5.1); Sodium 141 mmol/L (136-145); Triglycerides 301 mg/dL (Less than 150)
[2019-02-16] MEDS ORDERED: Calcium Carbonate 500 MG ChewTAB PO PRN (05:35)
[2019-02-16] MEDS ORDERED: Mag-Al 1200 mg/1200 mg/30 ML UDCUP PO PRN (05:35)
[2019-02-16] MEDS ORDERED: Aspirin 325 mg Enteric Coated Tablet PO SCH (09:00)
[2019-02-16] MEDS ORDERED: Enoxaparin Sodium 40 MG/0.4 ML SYRINGE SC SCH (09:00)
[2019-02-16] MEDS ORDERED: Clopidogrel Bisulfate 75 MG TAB PO SCH (09:00)
[2019-02-16] MEDS ORDERED: Regadenoson 0.4 MG/5 ML SYRINGE ONE (09:41)
[2019-02-16 12:01] VITALS: BP 122/68; TEMP 97.9
--- NOTE | 2019-02-16 13:06 | NM ---
CARDIAC SPECT: CLINICAL HISTORY: 48-year-old male with chest pain, coronary artery disease, RI, stent placement, peripheral artery dis ease, hypertension, and dyslipidemia. TECHNIQUE: A myocardial perfusion scan was performed using the single isotope one day protocol with technetium-9 9m sestamibi. 10 mCi were injected intravenously for the rest exam followed by 27 mCi for the stress exam. Pharmacologic stress with Lexiscan was monitored and interpreted by Dr. Moran. FINDINGS: Homogeneous tracer distribution is seen in the myocardial segments on stress and rest images without fixed or reversible defects. GATED SPECT LVEF: 71%. WALL MOTION EXAM: Normal. IMPRESSION: Normal myocardial perfusion scan. POS: OFF
[2019-02-16] MEDS ORDERED: Pravastatin Sodium 40 MG TAB PO SCH (21:00)
--- NOTE | 2019-02-21 14:06 | EKG ---
Test Reason : Blood Pressure : / mmHG Vent. Rate : 074 BPM Atrial Rate : 074 BPM P-R Int : 132 ms QRS Dur : 086 ms QT Int : 368 ms P-R-T Axes : 039 070 036 degrees QTc Int : 408 ms Normal sinus rhythm Normal ECG Confirmed by ERLINDA PARMAR ([id number]), religious activities director OLGA QUISPE ([id number]) on 02/21/2019 2:06:33 PM Referred By: Confirmed By:ERLINDA PARMAR
== END 2019-02-16 16:40 | disposition home or self-care (01) ==
LOC: ERS 19:17 → 2SW 22:08
PROVIDERS: ADMIT Internal Medicine; ATTEND Internal Medicine
DX: R07.9 Chest pain, unspecified (principal); I10 Essential (primary) hypertension; E78.5 Hyperlipidemia, unspecified; I25.10 Atherosclerotic heart disease of native coronary artery without angina pectoris; F31.9 Bipolar disorder, unspecified; F20.9 Schizophrenia, unspecified; F17.210 Nicotine dependence, cigarettes, uncomplicated; Z79.82 Long term (current) use of aspirin; Z79.899 Other long term (current) drug therapy; Z88.0 Allergy status to penicillin; Z88.5 Allergy status to narcotic agent; Z95.5 Presence of coronary angioplasty implant and graft
CPT/HCPCS: 36415; 71045; 78452; 80048; 80053; 80061; 80164; 80306; 80307; 82550; 83690; 84484; 85025; 85379; 93005; 93017; 96372; A9500; G0378; J1650; J2785